=== PATIENT | male | born 1960 | race Caucasian/White ===

== ENCOUNTER 2016-11-20 05:58 | Day surgery (SDC) | payer OTHER ==
[~2016-11-20] VITALS: Ht 172.7 cm; Wt 76.0 kg
[2016-11-20 07:28] VITALS: Ht 172.7 cm; Wt 76.0 kg
[2016-11-20] MEDS ORDERED: NAPR-683 PO (07:36)
[2016-11-20] MEDS ORDERED: LANS30CA PO (07:36)
[2016-11-20 07:54] VITALS: BP 114/70; PULSE 51; RESP 14
--- NOTE | 2016-11-20 08:52 | OPPN ---
Date/Time of Note Date/Time of Note DATE: 11/20/16 TIME: 08:50 Operative Report Preoperative Diagnosis Colon cancer screening Postoperative Diagnosis 1. Diverticulosis 2. Fissuring in ano Operation/Procedure Performed Colonoscopy Provider: ADAL RODRIGUEZ MD Transfusion Required: no Specimen: none Grafts/Implants: none Complications: no ADAL RODRIGUEZ MD Nov 20, 2016 08:52
[2016-11-20] MEDS ORDERED: FENTAnyl 50 MCG/ML VIAL ONE (08:55)
[2016-11-20] MEDS ORDERED: MIDAZOLAM 1 MG/ML 2 ML INJ ONE ×2 (08:55)
[2016-11-20 09:31] VITALS: BP 118/73; PULSE 63; RESP 12
--- NOTE | 2016-11-20 09:36 | GILP ---
DATE OF PROCEDURE: 11/20/2016 INDICATIONS FOR PROCEDURE: A 56-year-old male undergoing this procedure for colon cancer screening. He is suffering from severe constipation. The risks of the procedure, related complications, and anesthetic risks, sedative risks, alternatives discussed, informed consent was obtained. DESCRIPTION OF PROCEDURE: The patient was brought to the GI lab, sedated with Versed and fentanyl. After optimal sedation, scope was passed with much ease into the rectum and advanced slowly through sigmoid, descending, transverse colon all the way into the cecum and finally into terminal ileum. Terminal ileum was normal. Rest of the colon was normal. He had a diverticula in the left side of the colon that was a mild form. Patient had melanosis coli involving the entire colon. Retroflexion could not be done because it was painful due to the anal ulcer. The scope was removed. A fissure was identified. Hemorrhoids also were seen. The scope was removed with good patient tolerance. IMPRESSION: 1. [id number]. 2. Mild diverticulosis. 3. Melanosis coli. 4. Negative all the way into the cecum otherwise. 5. Negative into terminal ileum. 6. Clarity and cleanliness were good. PLAN: Patient has to be on a stool softener, sitz bath and Anusol HC suppository or may require nitroglycerin and Cardizem ointment combination compounded by the pharmacy. Dictated By: Jimmy Lopez MD /[email or web address]/[email or web address] /Document#: [id number] CC: Jimmy Lopez MD; Primary MD;*End*
== END 2016-11-20 11:10 | disposition home or self-care (01) ==
LOC: GIL 05:58
PROVIDERS: ATTEND Internal Medicine Gastroenterology
DX: K63.89 Other specified diseases of intestine (principal); K57.90 Diverticulosis of intestine, part unspecified, without perforation or abscess without bleeding
CPT/HCPCS: 45378; J2250; J3010; Z7610